=== PATIENT | male | born 1990 | race Caucasian/White ===

== ENCOUNTER 2017-12-05 13:27 | Emergency (ER) | payer OTHER ==
[~2017-12-05] VITALS: Ht 180.3 cm; Wt 99.8 kg
[2017-12-05 13:37] VITALS: Ht 180.3 cm; Wt 99.8 kg
[2017-12-05 14:58] VITALS: BP 142/88
== END 2017-12-05 14:50 | disposition home or self-care (01) ==
LOC: ED 13:27
DX: F41.9 Anxiety disorder, unspecified (principal); Z98.890 Other specified postprocedural states
CPT/HCPCS: J2060